=== PATIENT | female | born 1950 | race Asian ===

== ENCOUNTER → 2024-02-05 | Outpatient (CLI) | payer OTHER, SELFPAY ==
[2024-02-05 08:53] LABS: Albumin, Serum 4.8 gm/dL (3.4-4.8); Anion Gap 8 (7-16); BUN/Creatinine Ratio 19 Ratio (12-20); Blood Urea Nitrogen 19 mg/dL (9-23); Carbon Dioxide 29.1 mMol/L (20.0-31.0); Chloride 103 mMol/L (98-107); Glucose 159 mg/dL (74-106); Osmolality,Calculated 284 (275-295); Phosphorous 3.7 mg/dL (2.4-5.1); Potassium 4.9 mMol/L (3.4-5.1); Sodium 140 mMol/L (136-145); eGFR 60 See Note
[2024-02-05 09:17] LABS: Glucose Estimated Average 154 mg/dL (80-131)
== END | disposition home or self-care (01) ==
LOC: COPL 07:50
PROVIDERS: PCP Internal Medicine; Referring Provider Internal Medicine; Visit Provider Internal Medicine
DX: E11.9 Type 2 diabetes mellitus without complications (principal)
CPT/HCPCS: 36415; 80069; 83036

== ENCOUNTER → 2024-07-31 | Outpatient (CLI) | payer OTHER, SELFPAY ==
[2024-07-31 07:49] LABS: Collection Type, Urine Clean Catch
[2024-07-31 08:21] LABS: Glucose Estimated Average 166 mg/dL (80-131); Hemoglobin A1C 7.4 % Hgb (4.8-6.0)
[2024-07-31 08:23] LABS: Basophils % (Auto) 0 % (0-2.5); Eosinophils # (Auto) 0.3 Thou/mm3 (0.0-0.5); Eosinophils % (Auto) 3 % (0-10); Hematocrit 34.3 % (36.0-46.0); Hemoglobin 11.1 g/dL (12.0-16.0); Immature Granulocytes % (Auto) 0 % (0-0); Immature Granulocytes Auto 0.01 Thou/mm3 (0.00-0.00); Lymphocytes # (Auto) 2.5 Thou/mm3 (1.0-4.8); Lymphocytes % (Auto) 32 % (10-50); Mean Corpuscular HGB Conc 32.4 g/dl (31.0-37.0); Mean Corpuscular Hemoglobin 29.9 pg (25.0-35.0); Mean Corpuscular Volume 93 fL (80-100); Monocytes # (Auto) 0.5 Thou/mm3 (0.0-0.8); Monocytes % (Auto) 7 % (0-12); Neutrophils # (Auto) 4.5 Thou/mm3 (1.8-7.7); Neutrophils % (Auto) 58 % (37-80); Nucleated Red Blood Cell % 0 /100 WBC (0); Platelet Count 249 Thou/mm3 (140-440); RDW Standard Deviation 43.2 fL (36.4-46.3); Red Blood Count 3.71 Miln/mm3 (4.00-5.20); White Blood Count 7.8 Thou/mm3 (3.6-11.0)
[2024-07-31 08:25] LABS: Vitamin D 25 Hydroxy Total 23.2 ng/mL (7.3-40.2)
[2024-07-31 08:33] LABS: Bacteria,Urine Rare; Bilirubin,Urine Negative (Negative); Blood,Urine Negative (Negative); Clarity,Urine Clear (Clear/Hazy); Color,Urine Colorless (Lt Yel-Yel); Glucose, Urine Negative (Negative); Ketones,Urine Negative (Negative); Leukocyte Esterase,Urine Negative (Negative); Nitrite,Urine Negative (Negative); PH,Urine 6.5 (5.0-7.0); Protein,Urine Negative (Neg - Trace); RBC,Urine 1 /hpf (0-3); Specific Gravity,Urine 1.008 (1.001-1.035); Squamous Epithelial Cell,Urine 6 /hpf (0-5); Urobilinogen,Urine Negative mg/dL (0.0-1.0); WBC,Urine 1 /hpf (0-5)
[2024-07-31 08:34] LABS: Alanine Aminotransferase 18 U/L (10-49); Albumin, Serum 4.8 gm/dL (3.4-4.8); Albumin/Globulin Ratio 1.5 (1.2-2.2); Alkaline Phosphatase 63 U/L (46-116); Anion Gap 10 (7-16); Aspartate Amino Transferase 19 U/L (0-34); BUN/Creatinine Ratio 15 Ratio (12-20); Bilirubin,Total 0.6 mg/dL (0.3-1.2); Blood Urea Nitrogen 17 mg/dL (9-23); Calcium 9.2 mg/dL (8.3-10.6); Calcium (Corrected) 9.2 mg/dL (8.5-10.1); Carbon Dioxide 28.7 mMol/L (20.0-31.0); Chloride 103 mMol/L (98-107); Cholesterol 142 mg/dL (132-200); Creatinine (Component) 1.1 mg/dL (0.6-1.3); Free T4 (Free Thyroxine) 1.16 ng/dL (0.89-1.76); Globulin 3.3 gm/dL (2.3-3.5); Glucose 157 mg/dL (74-106); HDL Cholesterol 70 mg/dL (40-60); LDL Cholesterol,Calculated 44 mg/dL (0-130); Osmolality,Calculated 287 (275-295); Potassium 4.2 mMol/L (3.4-5.1); Sodium 142 mMol/L (136-145); Total Protein 8.1 gm/dL (5.7-8.2); Triglycerides 141 mg/dL (30-150); eGFR 53 See Note
[2024-07-31 08:49] LABS: Creatinine MALB Rnd Ur 37 mg/dL (30-125); Microalbumin Creat Ratio 16 mg/gCrea (<30); Microalbumin, Random Urine 6 mg/L (0-300)
== END | disposition home or self-care (01) ==
LOC: COPL 07:13
PROVIDERS: PCP Internal Medicine; Referring Provider Internal Medicine; Visit Provider Internal Medicine
DX: Z00.00 Encounter for general adult medical examination without abnormal findings (principal)
CPT/HCPCS: 36415; 80053; 80061; 81001; 82043; 82306; 82570; 83036; 84439; 84443; 85025

== ENCOUNTER → 2024-08-06 | Outpatient (CLI) | payer OTHER, SELFPAY ==
[2024-08-09 06:59] LABS: Fecal Globin Result NOT DETECTED (NOT DETECTED)
== END | disposition home or self-care (01) ==
LOC: COPL 10:09
PROVIDERS: Referring Provider Internal Medicine; Visit Provider Internal Medicine
DX: Z00.00 Encounter for general adult medical examination without abnormal findings (principal)
CPT/HCPCS: 82274; G0328

== ENCOUNTER → 2024-09-05 | Outpatient (CLI) | payer OTHER, SELFPAY ==
--- NOTE | 2024-09-05 08:15 | XR_ITS ---
Examination: Screening digital mammography, bilateral Computer aided detection 3-D breast Tomosynthesis, bilateral Date and time of exam: September 05, 2024 0758 hours Compared to mammograms dating to December 24, 2018 Indication: Screening Technique: Nonmagnified MLO, CC views of the breasts to been obtained, reconstructed from 3-D Tomosynthesis images. R2 computer aided detection program utilized for evaluation of suspicious masses and/or abnormal calcifications. 3-D Tomosynthesis images obtained. Findings: Scattered areas of fibroglandular density. Benign calcifications. No interval suspicious masses Impression: BI-RADS category II: Benign Findings. Recommend 1 year follow-up mammogram.
== END | disposition home or self-care (01) ==
LOC: CDIM 07:43
PROVIDERS: PCP Internal Medicine; Referring Provider Internal Medicine; Visit Provider Internal Medicine
DX: Z12.31 Encounter for screening mammogram for malignant neoplasm of breast (principal); R92.323 Mammographic fibroglandular density, bilateral breasts
CPT/HCPCS: 77063; 77067

== ENCOUNTER → 2024-11-04 | Outpatient (CLI) | payer OTHER, SELFPAY ==
[2024-11-04 10:18] LABS: Albumin, Serum 4.8 gm/dL (3.4-4.8); Anion Gap 13 (7-16); BUN/Creatinine Ratio 16 Ratio (12-20); Blood Urea Nitrogen 18 mg/dL (9-23); Calcium 9.9 mg/dL (8.3-10.6); Calcium (Corrected) 9.9 mg/dL (8.5-10.1); Carbon Dioxide 24.4 mMol/L (20.0-31.0); Chloride 104 mMol/L (98-107); Creatinine (Component) 1.1 mg/dL (0.6-1.3); Glucose 152 mg/dL (74-106); Osmolality,Calculated 286 (275-295); Phosphorous 2.5 mg/dL (2.4-5.1); Potassium 4.0 mMol/L (3.4-5.1); Sodium 141 mMol/L (136-145); eGFR 53 See Note
[2024-11-04 10:25] LABS: Glucose Estimated Average 171 mg/dL (80-131); Hemoglobin A1C 7.6 % Hgb (4.8-6.0)
== END | disposition home or self-care (01) ==
LOC: COPL 09:13
PROVIDERS: PCP Internal Medicine; Referring Provider Internal Medicine; Visit Provider Internal Medicine
DX: I11.0 Hypertensive heart disease with heart failure (principal); I50.9 Heart failure, unspecified
CPT/HCPCS: 36415; 80069; 83036

== ENCOUNTER → 2025-03-17 | Outpatient (CLI) | payer OTHER, SELFPAY ==
[2025-03-17 10:20] LABS: Glucose Estimated Average 166 mg/dL (80-131); Hemoglobin A1C 7.4 % Hgb (4.8-6.0)
== END | disposition home or self-care (01) ==
LOC: COPL 08:43
PROVIDERS: PCP Internal Medicine; Referring Provider Internal Medicine; Visit Provider Internal Medicine
DX: E11.9 Type 2 diabetes mellitus without complications (principal)
CPT/HCPCS: 36415; 83036